=== PATIENT | male | born 2000 | race African-American/Black ===

== ENCOUNTER 2019-02-09 09:25 | Outpatient (CLI) | payer OTHER ==
[2019-02-09 18:26] LABS: ALBUMIN 4.7 g/dL (3.2-5.5); ALBUMIN/GLOBULIN RATIO 1.6 (1.0-2.2); ALKALINE PHOSPHATASE 89 IU/L (42-121); ALT ALANINE AMINOTRANSFERASE 24 IU/L (10-60); AST ASPARTATE AMINOTRANSFERASE 25 IU/L (10-42); BILIRUBIN,TOTAL 0.4 mg/dL (0.2-1.0); BUN - BLOOD UREA NITROGEN 17 mg/dL (6-20); CALCIUM 9.7 mg/dL (8.5-10.3); CARBON DIOXIDE - CO2 28 mmol/L (21-32); CHLORIDE 107 mmol/L (101-111); CHOL/HDL RATIO 2.6 (<5.0); CHOLESTEROL 129 mg/dL; CREATININE 0.9 mg/dL (0.6-1.2); GFR - MDRD 130 (>89); GLUCOSE 85 mg/dL (70-100); HDL CHOLESTEROL 50 mg/dL; LDL CHOLESTEROL,CALCULATED 70 mg/dL; LDL/HDL RATIO 1.4 (<3.6); SODIUM 143 mmol/L (135-145); TOTAL PROTEIN 7.7 g/dL (6.7-8.2); VLDL CHOLESTEROL 9 mg/dL
== END 2019-02-09 09:26 | disposition home or self-care (01) ==
LOC: LAB.S 09:25
PROVIDERS: ATTEND Internal Medicine
DX: Z00.00 Encounter for general adult medical examination without abnormal findings (principal)
CPT/HCPCS: 36415; 80053; 80061; 83721

== ENCOUNTER 2022-05-10 12:26 | Emergency (ER) | payer OTHER ==
[2022-05-10 13:08] LABS: BASOPHILS % (AUTO) 0.3 %; EOSINOPHILS # (AUTO) 0.1 10^3/uL (0.0-0.7); EOSINOPHILS % (AUTO) 0.7 %; HCT - HEMATOCRIT 51.1 % (42.0-52.0); HGB - HEMOGLOBIN 16.3 g/dL (14.0-18.0); LYMPHOCYTES # (AUTO) 3.7 10^3/uL (1.5-3.5); LYMPHOCYTES % (AUTO) 40.8 %; MEAN CORPUSCULAR HEMOGLOBIN 29.5 pg (27.0-31.0); MEAN CORPUSCULAR HGB CONC 31.9 g/dL (32.0-36.0); MEAN CORPUSCULAR VOLUME 92.4 fL (80.0-94.0); MEAN PLATELET VOLUME 10.1 fL (7.4-11.4); MONOCYTES # (AUTO) 0.7 10^3/uL (0.0-1.0); NEUTROPHILS # (AUTO) 4.5 10^3/uL (1.5-6.6); NEUTROPHILS % (AUTO) 49.9 %; PLT - PLATELET COUNT 295 10^3/uL (130-450); RED BLOOD COUNT 5.53 10^6/uL (4.70-6.10); RED CELL DISTRIBUTION WIDTH 13.2 % (12.0-15.0); WHITE BLOOD COUNT 9.1 x10^3/uL (4.8-10.8)
--- NOTE | 2022-05-10 13:15 | XRAY Report ---
PROCEDURE: Chest 1 View X-Ray INDICATIONS: chest pain TECHNIQUE: One view of the chest was acquired. COMPARISON: None. FINDINGS: Surgical changes and devices: None. Lungs and pleura: No pleural effusions or pneumothorax. Lungs are clear. Mediastinum: Mediastinal contours appear normal. Heart size is normal. Bones and chest wall: No suspicious bony lesions. Overlying soft tissues appear unremarkable. IMPRESSION: No evidence acute pulmonary process. Reviewed by: Eduardo Malhotra MD on 05/10/2022 1:14 PM PST Approved by: Eduardo Malhotra MD on 05/10/2022 1:14 PM PST Station ID: [id number]
[2022-05-10 13:25] LABS: ALBUMIN 4.7 g/dL (3.2-5.5); ALBUMIN/GLOBULIN RATIO 1.3 (1.0-2.2); BILIRUBIN,TOTAL 0.6 mg/dL (0.2-1.0); CALCIUM 10.4 mg/dL (8.5-10.3); CREATININE 0.9 mg/dL (0.6-1.2); POTASSIUM 4.5 mmol/L (3.5-5.0); TOTAL PROTEIN 8.2 g/dL (6.7-8.2)
--- NOTE | 2022-05-10 13:33 | ED Physician Documentation ---
History of Present Illness - Stated complaint Stated Complaint: IRREG HEART RATE/LT ARM NUMB - Chief complaint Chief Complaint: Cardiac - Additonal information Additional information: 22-year-old male was referred to the emergency department by his providers at [facility] for evaluation of what they felt to be an abnormal EKG. Patient reports that he is recently developed gynecomastia. He has been referred to a plastic surgeon at [place] for this. However today he was at the's office for a routine medical checkup. He had reported that occasionally has some pain in his left arm as well as below his rib cage on the left side therefore an EKG was performed. The EKG completed at the office does show some mild ST elevation in multiple segments its most consistent with early repolarization. However they felt it warranted more emergent ER work-up. The patient denies chest pain or shortness of air. He does report that his father and grandfather both had heart attacks under the age of 50. His grandfather at 40 of such. Patient denies a history of hypertension. He is a daily cannabis user but denies tobacco. Rare alcohol use. Takes no prescribed medications. History is obtained from patient. Reliable historian Review of Systems Constitutional: denies: Fever, Chills Cardiac: denies: Chest pain / pressure, Palpitations, Pedal edema Respiratory: denies: Dyspnea, Cough GI: reports: Reviewed and negative : reports: Reviewed and negative Skin: reports: Reviewed and negative Musculoskeletal: reports: Reviewed and negative Endocrine: reports: Other (Gynecomastia) PD PAST MEDICAL HISTORY - Allergies Allergies/Adverse Reactions: Allergies Allergy/AdvReac Type Severity Reaction Status Date / Time Sulfa (Sulfonamide Allergy Hives Verified 05/10/22 12:40 Antibiotics) PD ED PE NORMAL - General General: Alert and oriented X 3, No acute distress - HEENT HEENT: PERRL, Moist mucous membranes - Neck Neck: Supple, no meningeal sign, No adenopathy - Cardiac Cardiac: RRR, No murmur, Strong equal pulses - Respiratory Respiratory: No respiratory distress, Clear bilaterally - Abdomen Abdomen: Normal bowel sounds, Soft - Derm Derm: Normal color, Warm and dry - Extremities Extremities: No deformity, No tenderness to palpate, Normal ROM s pain - Neuro Neuro: Alert and oriented X 3, manager fiber 2-12 intact - Free text exam Free text exam: Moderate gynecomastia bilaterally Results - Vitals Vitals: Vital Signs - 24 hr 05/10/22 05/10/22 05/10/22 12:31 12:40 14:03 Temperature 36.5 C 36.5 C 36.5 C Heart Rate 72 72 70 Respiratory 16 16 16 Rate Blood Pressure 143/88 H 143/88 H 130/80 O2 Saturation 100 100 100 Oxygen O2 Source Room air - EKG (time done) 1238 Rate: Rate (enter#) (69) Rhythm: NSR [place]: Normal Intervals: Normal SD. No: Prolonged QT QRS: Normal Ischemia: ST elevation c/w repol Compare to prior EKG: Old EKG unavailable Computer interpretation: Agree with computer (Mild ST elevation globally likely reflects early repole) - Labs Labs: Laboratory Tests 05/10/22 05/10/22 05/10/22 13:03 13:03 13:03 WBC 9.1 RBC 5.53 Hgb 16.3 Hct 51.1 MCV 92.4 MCH 29.5 MCHC 31.9 L RDW 13.2 Plt Count 295 MPV 10.1 Neut # (Auto) 4.5 Lymph # (Auto) 3.7 H [place] # (Auto) 0.7 Eos # (Auto) 0.1 Baso # (Auto) 0.0 Absolute Nucleated RBC 0.00 Nucleated RBC % 0.0 Sodium Potassium Chloride Carbon Dioxide Anion Gap BUN Creatinine Estimated GFR (MDRD) Glucose Calcium Total Bilirubin AST ALT Alkaline Phosphatase Troponin I High Sens 3.7 B-Natriuretic Peptide 13 Total Protein Albumin Globulin Albumin/Globulin Ratio Lipase TSH Prolactin Serum HCG, Qual 05/10/22 05/10/22 05/10/22 13:03 13:03 13:03 WBC RBC Hgb Hct MCV MCH MCHC RDW Plt Count MPV Neut # (Auto) Lymph # (Auto) [place] # (Auto) Eos # (Auto) Baso # (Auto) Absolute Nucleated RBC Nucleated RBC % Sodium 142 Potassium 4.5 Chloride 103 Carbon Dioxide 26 Anion Gap 13.0 BUN 16 Creatinine 0.9 Estimated GFR (MDRD) 126 Glucose 94 Calcium 10.4 H Total Bilirubin 0.6 AST 33 ALT 31 Alkaline Phosphatase 87 Troponin I High Sens B-Natriuretic Peptide Total Protein 8.2 Albumin 4.7 Globulin 3.5 Albumin/Globulin Ratio 1.3 Lipase 29 TSH 1.52 Prolactin 4.52 Serum HCG, Qual NEGATIVE PD Medical Decision Making - ED course Complexity details: reviewed results, re-evaluated patient, d/w patient ED course: 22-year-old male was brought to the emergency department by his after being seen at His PCP office where he had presented for an annual checkup. He has recently developed gynecomastia. He tells me that he had said occasionally has left arm pain and reported occasional left subcostal rib pain. They did complete an EKG which per my interpretation shows early repolarization however the providers at the clinic were concerned about ischemic ST elevation thus he was advised to come to the ER. On presentation to the emergency department he is alert and well-appearing with normal and unremarkable vitals for age. We did repeat his twelve-lead EKG here in the emergency department and it is nonischemic. He does have mild ST elevation globally which is most consistent with early repolarization. We did obtain high-sensitivity troponin that was negative. Patient is however denying chest pain. Chest x-ray was without acute focal findings. My interpretation of his CBC and electrolytes is otherwise unremarkable. Regarding the gynecomastia. His hCG was negative. His prolactin is not elevated and his TSH was normal. He tells me he has been referred to plastic surgeon for longer-term evaluation and management of this concern. Patient does have a strong family history of early cardiac disease in his dad and grandfather. However at this juncture no other treatment is necessary through the emergency department. He is encouraged to have risk management discussion with his PCP. Emergent return precautions were discussed for worsening symptoms. Departure - Departure Disposition: 01 Home, Self Care Clinical Impression: Gynecomastia Condition: Stable Record reviewed to determine appropriate education?: Yes Comments: Travon you came to the emergency department from your primary care office because they felt you had an abnormal EKG. As we discussed at the bedside your EKG is normal for a young man your age. With what they interpreted as ST elevation is actually something called early repolarization. You do have a strong family history of cardiac disease that occurs early in the males in your family. I encourage you to follow with your primary care doctor to talk about risk factor modification for heart disease. You are being evaluated for gynecomastia. Here in the emergency department your labs are all essentially normal. We do have a pending thyroid, procalcitonin as well as quantitative hCG labs that are pending. These can be helpful in the work-up of gynecomastia. I encourage you to follow them closely with your primary care provider. Discharge Date/Time: 05/10/22 14:03
[2022-05-10 13:55] LABS: HCG,QUALITATIVE BLOOD NEGATIVE
[2022-05-10 14:05] VITALS: BP 130/80
[2022-05-10 14:07] LABS: THYROID STIMULATING HORMONE 1.52 uIU/mL (0.34-5.60)
[2022-05-10 14:13] LABS: PROLACTIN 4.52 ng/mL
== END 2022-05-10 14:03 | disposition home or self-care (01) ==
LOC: ED 12:26
DX: N62 Hypertrophy of breast (principal); Z82.49 Family history of ischemic heart disease and other diseases of the circulatory system
CPT/HCPCS: 36415; 80053; 83690; 83880; 84146; 84443; 84484; 84702; 84703; 85025; 93005; 99283; 99284

== ENCOUNTER 2022-08-04 11:01 | Outpatient (CLI) | payer OTHER | END 2022-08-04 11:02 | disposition home or self-care (01) | LOC: NS 11:01 | PROVIDERS: ATTEND Nurse Practitioner Family | DX: Z71.3 Dietary counseling and surveillance (principal); E66.01 Morbid (severe) obesity due to excess calories; Z68.38 Body mass index [BMI] 38.0-38.9, adult | CPT/HCPCS: 97802 ==